=== PATIENT | male | born 1960 | race Caucasian/White ===

== ENCOUNTER 2016-07-22 11:26 | Outpatient (CLI) | payer MEDICARE ==
[~2016-07-22] VITALS: Ht 188 cm; Wt 145.5 kg
--- NOTE | ~2016-07-22 | HEMODYNAMI ---
PATIENT:DAVONTE MURDOCK MEDICAL RECORD: [id number] : 58 LOCATION:[facility] ADMISSION DATE: 07/22/16 Generatedon:07/22/201616:02 Patient name: DAVONTE MURDOCK Patient #: [id number] SSN: [id number] : 1960 Date of study: 07/22/2016 Page: Of Hemodynamic Procedure Report Patient Data Patient Demographics Procedure consent was obtained First Name: DAVONTE Gender: Male Last Name: MATHIEU : 1960 Middle Initial: WIL Age: 55 year(s) Patient #: [id number] Race: SSN: [id number] Additional ID: [id number] Contact details Address: [address] [place] [address] State: [place] City: [place] Zip code: [address] Past Medical History Allergies: No known allergies Admission Admission Data Admission Date: 07/22/2016 Admission Time: 11:26 Arrival Date: 07/22/2016 Arrival Time: 14:00 Admit Source: Other Insurance Payor: Medicare Weight (lbs.): 319.67 Weight (kg.): 145 Lab Results Lab Result Date: 07/22/2016 Lab Result Time: 0:00 Biochemistry Name Units Result Min Max BUN mg/dl 16 --(---*)-- 7 18 Creatinine mg/dl 0.9 --(-*--)-- 0.6 1.3 CBC Name Units Result Min Max Hemoglobin g/dl 15.5 --(-*--)-- 13.5 17.5 Procedure Procedure Types Cath Procedure Peripheral vascular Intervention Stent Stent-Fem/Popw/plasty Procedure Description Procedure Date Procedure Date: 07/22/2016 Procedure Start Time: 15:24 Procedure End Time: 15:57 Procedure Staff Name Function Elijah Steve MD Performing Physician Chapis Augustin RT Monitor Roxann Sharma RT Scrub Raine Nielson RN Nurse Procedure Data Cath Procedure Fluoroscopy Diagnostic fluoroscopy Total fluoroscopy Time: 6.7 time: 6.7 min min Diagnostic fluoroscopy Total fluoroscopy dose: 646 dose: 646 mGy mGy Contrast Material Contrast Material Type Amount (ml) Isovue 370 56 Entry Location Entry Primary Successful Side Size Upsize Upsize Entry Closure Succes sful Closure Location (Fr) 1 (Fr) 2 (Fr) Remarks Device Remarks Femoral Left 6 Fr 6 Fr 6 Fr Exoseal artery Short Long Short Estimated blood loss: 5 ml Diagnostic catheters Device Type Used For End Catheter Placement Cordis Infinity 5Fr IM Multi-vessel catheter Angiography Procedure Complications No complications Procedure Medications Medication Administration Route Dosage Oxygen NC 2 l/min Lidocaine 2% added to field 20 Heparin Flush Bag added to field 2 bags (1000units/500ml NS) 0.9% NaCl I.V. 100 ml/hr Benadryl I.V. 50 mg Versed I.V. 2 mg Fentanyl I.V. 100 mcg Versed I.V. 2 mg Fentanyl I.V. 100 mcg Versed I.V. 1 mg Fentanyl I.V. 50 mcg Heparin Bolus I.V. 9000 units Versed I.V. 1 mg Fentanyl I.V. 50 mcg Hemodynamics Rest HGB: 15.5 (g/dl) Heart Rate: 61 (bpm) Snapshots Pre Cath Intra NCS Post Cath Vital Signs Time Heart Resp SPO2 NIBP (mmHg) Rhythm Pain Sedation Rate (ipm) (%) Status Level (bpm) 15:17:19 64 17 98 165/84(130) NSR 0 (11) 10(A) , No pain 15:21:45 63 16 95 157/81(115) NSR 0 (11) 10(A) , No pain 15:26:07 44 16 94 144/74(117) NSR 0 (11) 10(A) , No pain 15:30:29 57 16 94 139/66(96) NSR 0 (11) 9(A) , No pain 15:35:32 64 15 98 147/87(128) NSR 0 (11) 9(A) , No pain 15:39:46 60 16 94 138/80(116) NSR 0 (11) 9(A) , No pain 15:44:08 47 16 95 127/71(112) NSR 0 (11) 9(A) , No pain 15:48:26 63 18 94 141/72(99) NSR 0 (11) 9(A) , No pain 15:52:47 65 16 94 138/72(94) NSR 0 (11) 9(A) , No pain 15:57:11 67 17 96 148/77(110) NSR 0 (11) 10(A) , No pain Medications Time Medication Route Dose Verified Delivered Reason Notes Effectiveness by by 15:16:45 Oxygen NC 2 Elijah Buffie used for l/min Boris Nielson RN procedure 15:16:54 Lidocaine 2% added 20ml Elijah Elijah for local to vial Boris Steve MD anesthetic field 15:17:00 Heparin Flush added 2 Elijah Elijah used for Bag to bags Boirs Steve MD procedure (1000units/500ml field NS) 15:17:09 0.9% NaCl I.V. 100 Elijah Buffie Per physician ml/hr Boris Nielson RN 15:17:20 Benadryl I.V. 50 mg Elijah Buffie used for Boris Nielson RN procedure 15:23:12 Versed I.V. 2 mg Elijah Buffie for sedation Boris Nielson RN 15:23:18 Fentanyl I.V. 100 Elijah Buffie for sedation mcg Boris Nielson RN 15:27:34 Versed I.V. 2 mg Elijah Buffie for sedation Boris Nielson RN 15:27:39 Fentanyl I.V. 100 Elijah Buffie for sedation mcg Boris Nielson RN 15:36:07 Versed I.V. 1 mg Elijah Buffie for sedation Boris Nielson RN 15:36:11 Fentanyl I.V. 50 Elijah Buffie for sedation mcg Boris Nielson RN 15:38:20 Heparin Bolus I.V. 9,000 Elijah Buffie for verifi ed units Boris Nielson RN anticoagulation with dr steve 15:43:11 Versed I.V. 1 mg Elijah Buffie for sedation Boris Nielson RN 15:43:15 Fentanyl I.V. 50 Elijah Buffie for sedation mcg Boris Nielson RN Procedure Log Time Note 15:00:00 Roxann ANAND(R) sent for patient. Start room use. 15:06:17 Informed consent obtained and on chart 15:06:24 Diagnostic Cath Status : Elective 15:07:03 Time tracking: Regular hours 15:07:08 Plan of Care:Hemodynamics will remain stable., Cardiac rhythm will remain stable., Comfort level will be maintained., Respiratory function will remain adequate., Patient/ family verbilizes understanding of procedure., Procedure tolerated without complication., Recovers from procedure without complications.. 15:16:03 Patient received from Outpatients to CCL 1 Alert and oriented. Tansferred to table in Supine position. 15:16:04 Warm blankets applied, and melissa hugger turned on for patient comfort. 15:16:04 Correct patient and procedure confirmed by team. 15:16:05 ECG and BP/O2 sat monitors applied to patient. 15:16:05 Vital chart was started 15:16:06 Baseline sample Acquired. 15:16:12 Rhythm: sinus rhythm 15:16:13 Full Disclosure recording started 15:16:45 Oxygen 2 l/min NC was given by Raine Nielson RN; used for procedure; 15:16:54 Lidocaine 2% 20ml vial added to field was given by Elijah Steve MD; for local anesthetic; 15:16:58 H&P Date Dictated: 07/16/2016 Within 30 days and on chart., H&P Addendum completed by physician on day of procedure. (MUST COMPLETE FOR ALL OUTPATIENTS). 15:17:00 Heparin Flush Bag (1000units/500ml NS) 2 bags added to field was given by Elijah Steve MD; used for procedure; 15:17:02 Pre-procedure instructions explained to patient. 15:17:09 0.9% NaCl 100 ml/hr I.V. was given by Raine Nielson RN; Per physician; 15:17:10 Pre-op teaching completed and patient verbalized understanding. 15:17:20 Benadryl 50 mg I.V. was given by Raine Nielson RN; used for procedure; 15:17:26 Family in waiting room. 15:17:31 Patient NPO since Midnight. 15:17:56 Is the patient allergic to Iodine/contrast media? No. 15:17:58 Was the patient premedicated? No 15:20:02 Is patient on blood thinner?Yes 15:20:05 ACC The patient was administered the following blood thiners within the last 24 hours: ACCPlavix 15:20:08 Patient diabetic? Yes. 15:20:10 If diabetic: On Metformin? Yes 15:20:19 If on Metformin: Last Dose? 07/20/2016 15:20:24 Previous problem with sedation/anesthesia? No ? 15:20:29 Snore? No 15:20:30 Sleep apnea? No 15:20:31 Deviated septum? No 15:20:31 Opens mouth fully? Yes 15:20:32 Sticks out tongue? Yes 15:20:34 Airway obstruction? No ? 15:20:37 Dentures? No ? 15:20:41 Pre procedure: right dorsailis pedis pulse 1+ Palpable, but thready & weak; easily obliterated 15:20:44 Patient pain scale 0/10 ?. 15:21:03 IV patent on arrival in left forearm with 0.9% NaCl at [facility]. 15:22:16 Lab Result : BUN 16 mg/dl 15:22:16 Lab Result : Creatinine 0.9 mg/dl 15:22:16 Lab Result : Hemoglobin 15.5 g/dl 15:22:21 Lab results completed and on chart. 15:22:25 Left groin area was prepped with chlora-prep and draped in sterile fashion 15:22:26 Alarms reviewed by R. N. 15:22:26 Sharps counted by scrub and verified by R.N. 15::34 Physician arrived 15::35 --------ALL STOP TIME OUT------ 15::35 Final Timeout: patient, procedure, and site verified with staff and physician. All members of the team are in agreement. 15:22:38 Left groin site verified by team. 15:22:41 Physical assessment completed. ASA score P 2 - A patient with mild systemic disease as per Elijah Steve MD. 15:22:44 Sedation plan: IV Moderate Sedation Versed, Fentanyl 15:22:52 Use device set Femoral Dx 15:22:54 Acist Syringe opened to sterile field. 15:22:54 Bag Decanter opened to sterile field. 15:22:54 Cardinal Cath Pack opened to sterile field. 15:22:55 Terumo 5Fr [place] Sheath opened to sterile field. 15:22:56 St Ram[place] 260cm J .035 wire opened to sterile field. 15:22:58 Acist Hand Control opened to sterile field. 15:22:59 Acist Manifold opened to sterile field. 15:23:01 Tegaderm 4 x 4 opened to sterile field. 15:23:12 Versed 2 mg I.V. was given by Raine Nielson RN; for sedation; 15:23:18 Fentanyl 100 mcg I.V. was given by Raine Nielson RN; for sedation; 15:23:48 Zero performed for pressure channel P1 15:24:02 Procedure started. 15:24:28 Local anesthetic to left femerol artery with Lidocaine 2% by Elijah Steve MD.INITIAL ACCESS ONLY 15:24:38 A 6 Fr Short sheath was inserted into the Left Femoral artery 15:25:45 Terumo ANGLED SS 260CM glide wire opened to sterile field. 15:25:58 Terumo TORQUE DEVICE PLASTIC .038 opened to sterile field. 15:26:09 Terumo 6Fr [place] Destination Sheath opened to sterile field. 15:27:34 Versed 2 mg I.V. was given by Raine Nielson RN; for sedation; 15:27:39 Fentanyl 100 mcg I.V. was given by Raine Nielson RN; for sedation; 15:30:17 A CordCONEXANCE MD Infinity 5Fr IM catheter was advanced over the wire and used for Multi-vessel Angiography. 15:31:21 glide wire advanced. 15:32:25 Sheath upsized to a 6 Fr Long. 15:35:52 Right leg runoff performed. 15:36:07 Versed 1 mg I.V. was given by Raine Nielson RN; for sedation; 15:36:11 Fentanyl 50 mcg I.V. was given by Raine Nielson RN; for sedation; 15:38:20 Heparin Bolus 9,000 units I.V. was given by Raine Nielson RN; for anticoagulation; verified with dr steve 15:38:22 Merit BasixCompak Inflation Kit opened to sterile field. 15:40:29 Inflation number: 1 A Cordis Powerflex Pro 6.0 x 40 x 135cm balloon was prepped and advanced across the Mid Superficial Femoral, Right, then inflated to 3 CHELSEA for 0:06 (min:sec). 15:43:11 Versed 1 mg I.V. was given by Raine Nielson RN; for sedation; 15:43:15 Fentanyl 50 mcg I.V. was given by Raine Nielson RN; for sedation; 15:43:24 Inflation number: 2 The Cordis Powerflex Pro 6.0 x 40 x 135cm balloon was reinflated across the Mid Superficial Femoral, Right, to 4 CHELSEA for 1:00 (min:sec). 15:49:14 Cordis SMART 7 X 40 X 120 stent was deployed across Mid Superficial Femoral, Right . 15:51:37 Inflation number: 3 The Cordis Powerflex Pro 6.0 x 40 x 135cm balloon was reinflated across the Mid Superficial Femoral, Right, to 6 CHELSEA for 0:30 (min:sec). 15:52:34 Balloon removed over the wire. 15:52:35 Wire removed. 15:52:35 Guide catheter removed. 15:52:44 Sheath upsized to a 6 Fr Short. 15:52:56 Cordis 6Fr Exoseal opened to sterile field. 15:53:10 Sheath removed intact; hemostasis achieved with Exoseal to the Left Femoral artery. 15:53:47 Procedure ended.(Physican Out) 15:55:52 Fluoroscopy time 06.70 minutes. 15:55:57 Fluoroscopy dose: 646 mGy 15:55:57 Flurop Dose total: 646 15:56:03 Contrast amount:Isovue 370 56ml. 15:56:04 Sharps counted by scrub and verified by R.N. 15:56:06 Insertion/operative site no bleeding no hematoma. 15:56:13 Post-op/insertion site Left Femoral artery dressed using a 4 x 4 and Tegaderm. 15:56:21 Post left femerol artery:stable 15:56:22 Post Procedure Pulses reassessed and unchanged 15:56:29 Post procedure rhythm: sinus rhythm 15:56:31 Estimated blood loss: 5 ml 15:56:36 Post procedure instruction explained to patient.Patient verbalizes understanding. 15:56:36 Patient needs reinforcement of post procedure teaching. 15:56:52 Procedure and supply charges have been captured, reviewed, submitted and are correct. 15:56:57 Procedure Complication : No complications 15:57:00 Vital chart was stopped 15:57:01 See physician's report for complete and final results. 15:57:04 Report given to Outpatients. 15:57:08 Patient transfered to Outpatients with Stretcher. 15:57:10 Procedure ended. 15:57:10 Full Disclosure recording stopped 15:57:22 ACC-PCI Only Patient was given prescriptions, or instructed by Elijah Steve MD to start/continue the following medications upon discharge: Plavix 15:57:24 End room use (Document Last) 15:57:39 Admit Source: Other 15:57:42 Arrival Date: 07/22/2016 2:00:00 PM 15:57:53 Insurance Payor : Medicare 15:59:52 Patient Weight : 145 lbs Intervention Summary Intervention Notes Time ActionType Lesion and Equipment Action# Pressure Duration Attributes Used 15:40:29 Inflate Mid Cordis 1 3 00:06 balloon Superficial Powerflex Femoral, Pro 6.0 x Right 40 x 135cm balloon 15:43:24 Reinflate Mid Cordis 2 4 01:00 balloon Superficial Powerflex Femoral, Pro 6.0 x Right 40 x 135cm balloon 15:49:14 Deploy self Mid Cordis 1 expanding Superficial SMART 7 X stent Femoral, 40 X 120 Right stent 15:51:37 Reinflate Mid Cordis 3 6 00:30 balloon Superficial Powerflex Femoral, Pro 6.0 x Right 40 x 135cm balloon Device Usage Item Name Manufacture Quantity Catalog Hospital Part Current Minimal Lot# / Number Charge Number Stock Stock Serial# Code Acist Acist 1 08576 321547 635161 [id number] 20 Syringe Medical Systems Inc Bag Microtek 1 2002S 331380 59050 644182 5 Decanter [employer] Inc. Cardinal Cardinal 1 [id number] 823775 91107 482449 5 Cath Pack Health Terumo 5Fr Terumo 1 [id number] 116653 007599 951556 [address] [place] 1 881199 258653 633343 177632 30 260cm J .035 wire Acist Hand Acist 1 57107 212464 080379 707194 5 Control Medical Systems Inc Acist Acist 1 00480 355044 570414 131594 5 Manifold Medical Systems Inc Tegaderm 4 3M 1 1626W 375476 848374 389524 5 x 4 Terumo Terumo 1 [id number] 931226 075340 911877 [address] SS 260CM glide wire Terumo Flint 1 TD01 106240 250061 702778 5 TORQUE Scientific DEVICE PLASTIC .038 Terumo 6Fr Terumo 1 RSR01 304806 01513 324344 5 [place] Destination Sheath Cordis Cardinal 1 [id number] 190897 611013 285806 5 Raspberry Pi Foundation 5Fr IM catheter Merit Merit 1 [id number] 799556 340847 848855 15 [email or web address] Medical Inflation Kit Cordis Cardinal 1 [id number] 470366 446815 047548 5 Powerflex Health Pro 6.0 x 40 x 135cm balloon Cordis Cardinal 1 [id number] 864706 551359 0 [id number] SMART 7 X Health 40 X 120 stent Cordis 6Fr Cardinal 1 EX600 857015 545976 140650 10 Shellcatch Signature Audit [place] Stage Time Signature Unsigned Intra-Procedure 07/22/2016 Chapis Augustin 4:02:07 PM RT(R) Signatures Monitor : Chapis Augustin RT Signature : Date : Time : [address] [place] [address]
[~2016-07-22 11:26] MED LIST: ASPIRIN325 MG PO; GLUCOPHAGE1000 MG PO; HUMALOG 30100 UNITS/ SC; HYDROCODONE-APA1 TAB PO; LANTUS INSULIN10 ML SC; NEURONTIN 300300 MG PO; PRAVACHOL40 MG PO; PRINZIDE 20-251 TA1 PO; PROZAC20 MG PO; SAW PALMETTO450 MG PO
[2016-07-22 12:40] LABS: BASOPHILS 0.3 % (0.0-2.0); EOSINOPHILS 3.4 % (0-7); HEMATOCRIT 46.5 % (42.0-54.0); HEMOGLOBIN 15.5 g/dL (13.5-17.5); IMMATURE GRANULOCYTES 0.3 % (0-5); LYMPHOCYTES 23.1 % (15-50); MCH 29.2 pg (26.0-34.0); MCHC 33.3 g/dL (31.0-37.0); MCV 87.6 fL (80.0-100.0); MEAN PLATELET VOLUME 9.9 fL (7.4-10.4); MONOCYTES 7.1 % (2-11); NEUTROPHILS 65.8 % (40-80); PLATELET COUNT 298 10x3/uL (130-400); RBC 5.31 10x6/uL (4.20-6.10); RDW 14.2 % (11.5-14.5); WBC 11.8 10x3/uL (4.8-10.8)
[2016-07-22 13:01] LABS: CALC OSMOLALITY 276 mosm/kg (275-300); CALCIUM 9.5 mg/dL (8.5-10.1); CARBON DIOXIDE 31.3 mmol/L (21.0-32.0); CHLORIDE - SERUM 100 mmol/L (98-107); CREATININE - SERUM 0.9 mg/dL (0.6-1.3); GLUCOSE 128 mg/dL (74-106); POTASSIUM - SERUM 4.8 mmol/L (3.5-5.1); SODIUM 137 mmol/L (136-145); UREA NITROGEN 16 mg/dL (7-18); eGFR NON AFRICAN AMERICAN > 90 mL/min (90-120)
[2016-07-22] MEDS ORDERED: PLAVIX75 MG PO (13:19)
[2016-07-22 13:25] VITALS: BP 139/75; BMI 41.1
--- NOTE | 2016-07-22 19:35 | NUR ---
REPORT RECEIVED FROM HUI EVANS RN, THIS NURSE ENTERS ROOM TO ASSESS PATIENT, UPON ASSESSING LEFT GROIN INITIALLY, LARGE HEMATOMA IS NOTED, PATIENT ASKS "IS THIS SUPPOSED TO BE THIS BIG? I THOUGHT IT WAS STARTING TO HURT." FIRM PRESSURE HELD IMMEDIATELY TO GROIN, DR CRUZ PAGED BY HUI EVANS RN, AWAITING ORDERS
--- NOTE | 2016-07-22 19:43 | NUR ---
DR CRUZ CALLS, ORDERS RECEIVED BY HUI EVANS RN, THIS NURSE CONTINUING TO HOLD PRESSURE
--- NOTE | 2016-07-22 19:50 | NUR ---
PRESSURE RELIEVED, HEMATOMA SOFT, PATIENT COMPLAINS OF PAIN IN LEFT LEG, EXPLAINED TO PATIENT THAT WE WILL REASSESS NORCO'S EFFECTIVENESS IN 30 MINUTES. PATIENT AGREEABLE
--- NOTE | 2016-07-22 19:55 | NUR ---
HEMATOMA MORE FIRM AGAIN, FIRM PRESSURE HELD AT SITE
--- NOTE | 2016-07-22 20:10 | NUR ---
HEMATOMA SOFTENED, MARGINS MARKED WITH PERMANENT MARKER, AWAITING ROOM ASSIGNMENT ON CARDIAC FLOOR
--- NOTE | 2016-07-22 20:31 | NUR ---
REPORT CALLED TO CLEMENTINE LAUREN ON CARDIAC FLOOR, PATIENT TRANSPORTED BY STRETCHER TO ROOM 2124 IN STABLE CONDITION
--- NOTE | 2016-07-22 20:52 | NUR ---
RECEIVED FROM OP TO 2123 VIA STRETCHER, AAOX3, SKIN WARM AND DRY, RESP UNLABORED, IV PATENT TO LEFT FOREARM, LEFT GROIN CATH SITE DRESSING DRY AND INTACT, SWELLING AND BRUISING NOTED TO GROIN, AREA ASSESSED AND MARKED FOR FUTURE REFERENCE, WILL MONITOR, DENIES NEEDS
[2016-07-22 21:47] VITALS: BP 147/82
[2016-07-23 01:44] VITALS: BP 153/83
--- NOTE | 2016-07-23 01:45 | NUR ---
PT LAYING IN BED NO DISTRESS OBSERVED WILL MONITOR
[2016-07-23 03:47] VITALS: BP 139/75; Ht 188 cm; Wt 145.5 kg
--- NOTE | 2016-07-23 05:30 | NUR ---
RESTING QUIETLY IN BED, NO DISTRESS NOTED,
[2016-07-23 06:10] VITALS: BP 117/68
[2016-07-23 08:00] VITALS: BP 135/51
--- NOTE | 2016-07-23 10:05 | NUR ---
IV AND TELEMETRY DCD. DC PLANS GIVEN. UNDERSTANDING VOICED. RIGHT LEG BRUICED AND TENDER, BUT STABLE FOR DC.
--- NOTE | 2016-07-23 11:04 | NUR ---
ESCORTED TO CAR BY W/C.
--- NOTE | 2016-07-31 13:16 | OP ---
PATIENT NAME: DAVONTE MURDOCK MEDICAL RECORD: [id number] :58 LOCATION:D.CAT ADMISSION DATE: SURGEON: ALTON CRUZ M.D. DATE OF OPERATION: 07/22/2016 REFERRING PHYSICIAN: Valencia Mak PROCEDURES PERFORMED: 1. SOLID WASTE FACILITY OPERATOR to the right superficial artery. 2. Stenting of the right superficial artery. INDICATION: A 55-year-old gentleman presents with lifestyle limiting claudication. Recent aortofemoral runoff a critical lesion involving the right superficial femoral artery. DESCRIPTION OF INTERVENTION: A 6-Burkinan sheath was inserted in retrograde fashion in the left common femoral artery. Next, the internal mammary catheter was advanced over a Glidewire to the bifurcation. The Glidewire was then passed into the right superficial artery. At this point, the catheter was advanced around the bifurcation. Next, a 6-Burkinan destination sheath was advanced over the Glidewire and placed in the distal right common femoral artery. Injections then revealed a 90% stenosis involving the proximal right superficial artery. At this point, 9000 units of heparin was infused. A 6-mm x 40-mm Powerflex balloon was advanced and 3 inflations were performed at 8 atmospheres. Injections revealed about a 20% to 30% residual stenosis. However, there was concern that there is a flow-limiting dissection for the vessel has been ballooned. At this point, the balloon was advanced another long inflation was performed. However, the dissection persisted. At this point, a 7-mm x 40-mm SMART stent was placed across the stenosis and deployed. It was postdilated a 6-mm balloon at 10 atmospheres. Injections revealed a less than 10% residual stenosis with brisk flow through the artery. There is no evidence of any dissection. At this point, the wire was removed. The sheath was then removed and the groin was closed with an ExoSeal. IMPRESSION: Successful percutaneous transluminal angioplasty and stenting to the right superficial artery. TRANSINT:[id number] Voice Confirmation ID: [id number] DOCUMENT ID: [id number] ALTON CRUZ M.D. at 1316 CC: [id number] DICTATION DATE: 07/22/16 1559 CYLINDER LOADER: 07/23/16 0011 DEP CLI 07/23/16 [facility] [address] [place] [address]
== END 2016-07-23 11:05 | disposition home or self-care (01) ==
LOC: D.CATH 11:26 → D.M2 20:35 → D.CATH 07-23 11:05
PROVIDERS: Internal Medicine Cardiovascular Disease
DX: I70.211 Atherosclerosis of native arteries of extremities with intermittent claudication, right leg (principal)

== ENCOUNTER → 2017-05-01 12:27 | Outpatient (CLI) | payer MEDICARE ==
[2016-07-23 03:47] VITALS: BMI 41.1
[~2017-05-01 12:27] MED LIST changes: +PLAVIX75 MG PO
== END | disposition home or self-care (01) ==
LOC: D.RAD 03-17 08:15
DX: K59.00 Constipation, unspecified (principal)